=== PATIENT | male | born 1965 | race Caucasian/White ===

== ENCOUNTER 2017-12-06 23:38 | Emergency (ER) | payer MEDICAID, OTHER ==
--- NOTE | 2017-12-07 01:43 | EDPHY ---
H & P Stated Complaint: feet dry and cracking Time Seen by Provider: 12/07/17 01:24 HPI/ROS: HPI The patient presents with dry feet which have been present for the last several weeks. He now has some cracking of the skin of his great toes. He does not have any foot pain or drainage or redness. He does have a history of diabetes.. REVIEW OF SYSTEMS 10 systems were reviewed and negative with the exception of the elements mentioned in the history of present illness. PMHx: Diabetes Soc Hx: Homeless PHYSICAL General Appearance: Alert, no distress Eyes: Pupils equal and round no pallor or injection ENT, Mouth: Mucous membranes moist Respiratory: Breathing comfortably Neurological: A&O, moves all extremities Skin: Warm and dry, no rashes Musculoskeletal: Neck is supple non tender Extremities: Great toes bilaterally with dry skin and some lacerations related to this without any active drainage or bleeding Psychiatric: Patient is oriented X 3, there is no agitation Source: Patient Exam Limitations: No limitations - Personal History Current Tetanus/Diphtheria Vaccine: No Current Tetanus Diphtheria and Acellular Pertussis (TDAP): No - Medical/Surgical History Hx Asthma: Yes Hx Chronic Respiratory Disease: No Hx Diabetes: Yes Hx Cardiac Disease: No Hx Renal Disease: No Hx Cirrhosis: No Hx Alcoholism: No Hx HIV/AIDS: No Hx Splenectomy or Spleen Trauma: No Other PMH: mrsa from [facility] living. dm - Social History Smoking Status: Current every day smoker Constitutional: Initial Vital Signs Temperature (C) 36.4 C 12/06/17 23:41 Heart Rate 90 12/06/17 23:41 Respiratory Rate 18 12/06/17 23:41 Blood Pressure 119/63 12/06/17 23:41 O2 Sat (%) 95 12/06/17 23:41 O2 Delivery Mode Room Air Allergies/Adverse Reactions: Penicillins Allergy (Verified 07/01/09 13:55) Home Medications: Medication Instructions Recorded NO HOME MEDS 11/01/09 Medical Decision Making Differential Diagnosis: 52-year-old homeless man with diabetes presents with painful cracked feet. This is likely related to prolonged walking, poor foot care and his diabetes. We have issued him a pair of socks here. I have urged him to use antibiotic ointment on any open wounds. He will be discharged home. There is no sign of trench foot or cellulitis or diabetic foot infection. Departure - Departure Disposition: Home, Routine, Self-Care Clinical Impression: Foot pain, bilateral Condition: Good Instructions: Foot Care for People with Diabetes (ED) Additional Instructions: Please change your socks daily and look at your feet to see if you have any open wounds. Please follow-up with your primary care doctor. Referrals: [facility] [Other] - As per Instructions
[2017-12-07 01:48] VITALS: BP 122/84
== END 2017-12-07 01:48 | disposition home or self-care (01) ==
DX: M79.671 Pain in right foot (principal); M79.672 Pain in left foot; E11.9 Type 2 diabetes mellitus without complications; Z79.4 Long term (current) use of insulin; F17.200 Nicotine dependence, unspecified, uncomplicated; Z59.0 Homelessness

== ENCOUNTER 2018-03-10 19:22 | Emergency (ER) | payer MEDICAID ==
[2018-03-10 19:30] VITALS: BP 135/76
[2018-03-10] MEDS ORDERED: LITHIUM CARBONATE 300 MG TAB PO ONE (20:01)
[2018-03-10] MEDS ORDERED: risperiDONE 2 MG TAB PO ONE (20:01)
--- NOTE | 2018-03-10 20:03 | EDPHY ---
H & P Time Seen by Provider: 03/10/18 19:54 HPI/ROS: CHIEF COMPLAINT: Needs lithium HISTORY OF PRESENT ILLNESS: Bipolar disorder discharge from [facility] on March 08, lost his prescriptions. Charge nurse called [facility] and confirmed as prescribed 1200 mg of lithium and 2 mg Risperdal at bedtime. Has not had yesterday or today. Patient presents with elevated mood. He is here with his of 5 years who says that when he gets his medications he stabilizes and she thinks that if we just give him his medications he will be fine. He says he can get his medications at clinic on Tuesday. REVIEW OF SYSTEMS: No hallucinations or SI or HI PAST MEDICAL HISTORY: Bipolar disorder, diabetes Social history: Here with his of 5 years General Appearance: Alert and conversant, cooperative. Patient is cooperative, alert. Not hallucinating. No SI or HI. Ambulatory and normal mentation with fluent speech. Slightly elevated mood. Emergency Department course/MDM: He is given his dose of lithium and risperdal tonight, and a prescription for 3 more days. He will [facility] his [facility] on [facility]. He does not appear to be gravely disabled or be a danger to himself or others tonight. Smoking Status: Current every day smoker Constitutional: Initial Vital Signs Temperature (C) 36.6 C 03/10/18 19:28 Heart Rate 107 H 03/10/18 19:28 Respiratory Rate 18 03/10/18 19:28 Blood Pressure 135/76 H 03/10/18 19:28 O2 Sat (%) 95 03/10/18 19:28 O2 Delivery Mode Room Air Allergies/Adverse Reactions: Penicillins Allergy (Verified 03/10/18 19:27) Home Medications: Medication Instructions Recorded NO HOME MEDS 11/01/09 [facility] Carbonate 03/10/18 [facility] [[facility] 1,200 mg PO HS 3 Days cap 03/10/18 Carbonate 600 mg cap (*)] risperiDONE [Risperdal] 2 mg PO HS #3 tablet 03/10/18 MDM/Departure - MDM Medications Given: Discontinued Medications [facility] Carbonate ([facility] Carbonate) 1,200 mg PO EDNOW ONE Stop: 03/10/18 20:02 Last Admin: 03/10/18 20:12 Dose: 1,200 mg Risperidone (Risperdal) 2 mg PO EDNOW ONE Stop: 03/10/18 20:02 Last Admin: 03/10/18 20:13 Dose: 2 mg - Depart Disposition: Home, Routine, Self-Care Clinical Impression: Bipolar disorder Qualifiers: Active/Remission status: remission status unspecified Qualified Code(s): F31.9 - Bipolar disorder, unspecified Condition: Good Instructions: Bipolar Disorder (ED) Prescriptions: [facility] [[facility] Carbonate 600 mg cap (*)] 1,200 mg PO HS 3 Days cap risperiDONE [Risperdal] 2 mg PO HS #3 tablet Referrals: [facility] [[facility]] - 03/13/18 [facility] - 1 day, if not improved
== END 2018-03-10 20:15 | disposition home or self-care (01) ==
DX: Z76.0 Encounter for issue of repeat prescription (principal); F31.9 Bipolar disorder, unspecified

== ENCOUNTER 2018-05-18 04:03 | Emergency (ER) | payer MEDICAID ==
[2018-05-18 04:12] VITALS: BP 112/71
--- NOTE | 2018-05-18 04:33 | EDPHY ---
H & P Stated Complaint: wants lithium levels checked Time Seen by Provider: 05/18/18 04:23 HPI/ROS: Chief Complaint: Wants to change medications HPI: 52 year old male with a history of PTSD who had been on lithium is presenting here emergency department requesting or change to his medications. Patient states he does not like have with him made him feel. He has been off of for a month. He is open tries I practice a because he heard that works better. He has an appointment with mental health warehouse distribution associate on Tuesday. Patient states that he [facility] to get into [facility] but was told that was fall. That is where his is now. She currently has all his medications. Denies being suicidal or homicidal. Patient states he is actually feeling much better after being off the lithium. Not hallucinating. Does not feel paranoid. He does have cough and congestion consistent with viral upper respiratory infection. No fevers or chills. Cough is nonproductive. ROS: 10 systems were reviewed and were negative except those elements noted in the HPI. PMH: PTSD Social History: Positive smoking, no alcohol, no recreational drug use Family History: non-contributory Physical Exam: Gen: Awake, Alert, No Distress HEENT: Nose: no rhinorrhea Eyes: PERRLA, EOMI Mouth: Moist mucosa Neck: Supple, no JVD Chest: nontender, lungs clear to auscultation Heart: S1, S2 normal, no murmur Abd: Soft, non-tender, no guarding Back: no CVA tenderness, no midline tenderness Ext: no edema, non-tender Skin: no rash Neuro: CN II-XII intact, Sensation grossly intact, Strength 5/5 in bilateral upper and lower extremities - Personal History Current Tetanus/Diphtheria Vaccine: Yes Current Tetanus Diphtheria and Acellular Pertussis (TDAP): Yes Tetanus Vaccine Date: 2017 - Medical/Surgical History Hx Asthma: Yes Hx Chronic Respiratory Disease: No Hx Diabetes: Yes Hx Cardiac Disease: No Hx Renal Disease: No Hx Cirrhosis: No Hx Alcoholism: No Hx HIV/AIDS: No Hx Splenectomy or Spleen Trauma: No Other PM[facility]: [facility] dm. bipolar - Social History Smoking Status: Current every day smoker Constitutional: Initial Vital Signs Temperature (C) 37.1 C 05/18/18 04:05 Heart Rate 112 H 05/18/18 04:05 Respiratory Rate 16 05/18/18 04:05 Blood Pressure 112/71 05/18/18 04:05 O2 Sat (%) 95 05/18/18 04:05 O2 Delivery Mode Room Air Allergies/Adverse Reactions: Penicillins Allergy (Verified 05/18/18 04:09) Home Medications: Medication Instructions Recorded [place] Carbonate 03/10/18 [place] Carbonate [[place] 1,200 mg PO HS 3 Days cap 03/10/18 Carbonate 600 mg cap (*)] Zyprexa 05/18/18 Medical Decision Making ED Course/Re-evaluation: 52-year-old male with a history of PTSD wanting to change medications in asking for prescription for Zyprexa. I have told him that I think would be best that he follow up with mental health evaluation let them decide on the best medications for him. I have also let him know that he can go to have crisis Center at any time for evaluation does not need to wait for his appointment if he feels and safe. Patient is liset for safety actually states he feels good right now. He does have symptoms consistent with bronchitis but no findings suggestive of pneumonia at this time. Will discharge with follow-up as planned, return for any concerns. Departure - Departure Disposition: Home, Routine, Self-Care Clinical Impression: Bronchitis Condition: Good Instructions: Acute Bronchitis (ED) Additional Instructions: Follow [facility] with [facility] for adjustments of your PTSD medications. [facility] for re-evaluation of your bronchitis. Return to the emergency department for increasing depression, hopelessness, thoughts of harming herself or others, worsening cough, fevers or chills, or any other concerns. Referrals: [facility] [Clinic] - As per Instructions [facility],. [Clinic] - As per Instructions
[2018-05-18] MEDS ORDERED: IBUPROFEN 600 MG TAB PO ONE (04:38)
[2018-05-18] MEDS ORDERED: ACETAMINOPHEN 500 MG TAB PO ONE (04:38)
== END 2018-05-18 04:44 | disposition home or self-care (01) ==
DX: J40 Bronchitis, not specified as acute or chronic (principal)

== ENCOUNTER 2018-06-10 22:32 | Emergency (ER) | payer MEDICAID ==
--- NOTE | 2018-06-10 22:47 | EDPHY ---
H & P Stated Complaint: itchy rash on abdomen x 1 week Time Seen by Provider: 06/10/18 22:39 HPI/ROS: Chief Complaint: Rash on abdomen HPI: 52-year-old male presenting with a rash on his abdomen that he says has been present for about 2 weeks. It began after he wore a belt and was working and lifting. Patient states his waistline got very sweaty at that time. The rash has not been expanding. It is very itchy. Is not painful. No history of prior similar symptoms. No rash anywhere else on his body. No fevers or chills. ROS: 10 systems were reviewed and were negative except those elements noted in the HPI. PMH: Mental health Social History: No smoking, no alcohol, no recreational drug use Family History: non-contributory Physical Exam: Gen: Awake, Alert, No Distress HEENT: Nose: no rhinorrhea Eyes: PERRLA, EOMI Mouth: Moist mucosa Neck: Supple, no JVD Chest: nontender, lungs clear to auscultation Heart: S1, S2 normal, no murmur Abd: Soft, non-tender, no guarding, patient has an annular rash on his abdomen approximately 10 cm x 5 cm. There is no surrounding erythema. Not warm to touch. There are some satellite lesions. No masses. Back: no CVA tenderness, no midline tenderness Ext: no edema, non-tender Skin: Per abdomen exam Neuro: CN II-XII intact, Sensation grossly intact, Strength 5/5 in bilateral upper and lower extremities - Personal History Current Tetanus Diphtheria and Acellular Pertussis (TDAP): Yes Tetanus Vaccine Date: 2017 - Medical/Surgical History Hx Asthma: Yes Hx Chronic Respiratory Disease: No Hx Diabetes: Yes Hx Cardiac Disease: No Hx Renal Disease: No Hx Cirrhosis: No Hx Alcoholism: No Hx HIV/AIDS: No Hx Splenectomy or Spleen Trauma: No Other PMH: mrsa from [facility]. dm. bipolar - Social History Smoking Status: Current every day smoker Constitutional: Initial Vital Signs Temperature (C) 36.7 C 06/10/18 22:34 Heart Rate 103 H 06/10/18 22:34 Respiratory Rate 16 06/10/18 22:34 Blood Pressure 106/72 06/10/18 22:34 O2 Sat (%) 95 06/10/18 22:34 O2 Delivery Mode Room Air Allergies/Adverse Reactions: Penicillins Allergy (Verified 06/10/18 22:33) Home Medications: Medication Instructions Recorded Zyprexa 05/18/18 Ketoconazole 30 gm TP DAILY 14 Days cream..g. 06/10/18 Medical Decision Making ED Course/Re-evaluation: 52-year-old male with an annular rash on his abdomen consistent with tinea. Will treat him with topical antifungals, follow up with [facility]. Departure - Departure Disposition: Home, Routine, Self-Care Clinical Impression: Tinea corporis Condition: Good Instructions: Tinea Corporis (ED) Additional Instructions: Follow up at [facility] in 2 weeks for recheck. Referrals: [facility],. [Clinic] - As per Instructions Prescriptions: Ketoconazole 30 gm TP DAILY 14 Days cream..g.
[2018-06-10] MEDS ORDERED: KETOCONAZOLE 2% 15 GM CREAM TP ONE (23:00)
[2018-06-10 23:11] VITALS: BP 110/80
== END 2018-06-10 23:14 | disposition home or self-care (01) ==
DX: B35.4 Tinea corporis (principal)